=== PATIENT | female | born 1945 | race Caucasian/White ===

== ENCOUNTER 2016-09-26 17:02 | Observation (INO) | payer MEDICARE ==
--- NOTE | 2016-09-26 17:37 | ED.PDOC ---
History of Present Illness - General Source: patient, EMS notes reviewed Exam Limitations: no limitations - History of Present Illness Initial Comments: 71 YEAR OLD FEMALE PRESENTS TO THE ED AFTER A SYNCOPAL EPISODE WHILE IN [facility] JUST PRIOR TO ARRIVAL. PT REPORTS FEELING DIZZY INTERMITTENTLY THROUGHOUT THE DAY AND JUST PRIOR TO PASSING OUT. ACCORDING TO EMS, PT WAS INCONTINENT OF URINE. PT REPORTS KNOWING WHERE SHE WAS AND WHAT HAPPENED WHEN SHE REGAINED CONSCIOUSNESS. PT REPORTS OF GENERALIZED WEAKNESS NOW AND COCCYX PAIN. Timing/Prior Episodes: single episode today Precipitating Factors: lightheadedness - PT REPORTS NOT EATING ANYTHING TODAY AND ONLY DRANK A CUP OF COFFEE Context: standing Loss of Consciousness: brief (seconds) Current Symptoms: loss of bladder control, weakness <Caleb Maza - Last Filed: 09/26/16 17:41> <Rosemary Hook - Last Filed: 09/26/16 21:20> - General Chief Complaint: Syncope/Near Syncope Stated Complaint: DIZZINESS Time Seen by Provider: 09/26/16 17:28 - History of Present Illness Allergies/Adverse Reactions: Allergies IV contrast Allergy (Uncoded 09/26/16 17:15) Review of Systems - Review of Systems Constitutional: Denies: chills, fever EENTM: Denies: ear pain, throat pain Respiratory: Denies: cough, short of breath Cardiology: States: see HPI, syncope. Denies: chest pain, palpitations Gastrointestinal/Abdominal: Denies: abdominal pain, diarrhea, vomiting Genitourinary: Denies: dysuria, frequency Musculoskeletal: Denies: joint pain, joint swelling Skin: Denies: lesions, rash Neurological: States: no symptoms reported Endocrine: States: no symptoms reported Hematologic/Lymphatic: States: no symptoms reported <Caleb Maza - Last Filed: 09/26/16 17:41> Past Medical History (General) - Patient Medical History Hx Seizures: No Hx Stroke: No Hx Dementia: No Hx Asthma: No Hx of COPD: Yes Hx Cardiac Disorders: No Hx Congestive Heart Failure: No Hx Pacemaker: No Hx Hypertension: Yes Hx Diabetes: No Hx Gastroesophageal Reflux: No Hx Renal Disease: No Hx Cancer: No Hx of HIV: No Hx Hepatitis C: No Hx MRSA: No Hx Other - free text: 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, HIATAL HERNIA, CHRONIC BACK PAIN Surgical History: other - Vaccination History Hx Tetanus, Diphtheria Vaccination: Yes Hx Influenza Vaccination: Yes Hx Pneumococcal Vaccination: Yes Immunizations Up to Date: Yes - Social History Hx Tobacco Use: Yes Hx Chewing Tobacco Use: No Hx Alcohol Use: No Hx Substance Use: No Hx Substance Use Treatment: No Hx Depression: No Feels Threatened In Home Enviroment: No Feels Threatened In a Relationship: No Hx Physical Abuse: No Hx Emotional Abuse: No Hx Suspected Abuse: No - Female History Patient is a Female of Child Bearing Age (10 -59 yrs old): No Patient : No <Caleb Maza - Last Filed: 09/26/16 17:41> Physical Exam - Physical Exam General Appearance: Alert, Comfortable, No apparent distress Eyes, Ears, Nose, Throat Exam: normal ENT inspection Neck: non-tender, full range of motion Cardiovascular/Respiratory: regular rate, rhythm, no M/R/G, normal breath sounds , no respiratory distress Gastrointestinal/Abdominal: normal bowel sounds, non tender, soft Back Exam: normal inspection, no vertebral tenderness Extremity: normal range of motion, non-tender, normal inspection Mental Status: alert, 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: normal hearing, normal speech, PERRL Motor/Sensory: no motor deficit, no sensory deficit Skin Exam: normal color, warm/dry <Caleb Maza - Last Filed: 09/26/16 17:41> Progress - EKG/XRAY/CT EKG: Sinus - 80BPM, NL INTERVALS, NL AXIS, , no ST T wave changes - NO OLD EKG FOR COMPARISON <Caleb Maza - Last Filed: 09/26/16 17:41> - Results/Orders Results/Orders: 09/26/16 09/26/16 09/26/16 17:16 18:35 19:32 Temperature 96.9 F L Pulse Rate [ 79 77 72 Left Radial] Respiratory 18 18 16 Rate Blood Pressure 96/68 116/70 122/78 [Left Arm] O2 Sat by Pulse 92 L 93 L 98 Oximetry 09/26/16 17:30 EKG STAT 09/26/16 18:03 UA [URINALYSIS] Stat Laboratory Results WBC 15.7 K/mm3 (4.8-10.8) H 09/26/16 17:40 RBC 4.27 M/mm3 (4.20-5.40) 09/26/16 17:40 Hgb 13.0 gm/dL (12.0-16.0) 09/26/16 17:40 Hct 38.3 % (36.0-47.0) 09/26/16 17:40 MCV 89.9 fl (81.0-99.0) 09/26/16 17:40 MCH 30.4 pg (27.0-31.0) 09/26/16 17:40 MCHC 33.8 g/dL (33.0-37.0) 09/26/16 17:40 RDW 14.4 % (11.5-14.5) 09/26/16 17:40 Plt Count 253 K/mm3 (130-400) 09/26/16 17:40 MPV 7.8 fl (7.40-10.4) 09/26/16 17:40 Absolute Neuts (auto) 11.50 K/uL (1.8-6.8) H 09/26/16 17:40 Absolute Lymphs (auto) 2.90 K/uL (1.0-3.4) 09/26/16 17:40 Absolute Monos (auto) 1.10 K/uL (0.2-0.8) H 09/26/16 17:40 Absolute Eos (auto) 0.10 K/uL (0.0-0.4) 09/26/16 17:40 Absolute Basos (auto) 0.10 K/uL (0.0-0.1) 09/26/16 17:40 Neutrophils % 73.5 % (42.0-78.0) 09/26/16 17:40 Lymphocytes % 18.8 % (20.0-50.0) L 09/26/16 17:40 Monocytes % 6.8 % (2.0-9.0) 09/26/16 17:40 Eosinophils % 0.3 % (1.0-5.0) L 09/26/16 17:40 Basophils % 0.6 % (0.0-2.0) 09/26/16 17:40 PT 10.6 SECONDS (9.4-12.5) 09/26/16 17:40 INR 0.940 09/26/16 17:40 PTT (SP) 25.1 SECONDS (25.1-36.5) 09/26/16 17:40 Sodium 128 mmol/L (135-145) L 09/26/16 17:40 Potassium 3.8 mmol/L (3.6-5.0) 09/26/16 17:40 Chloride 94 mmol/L (101-111) L 09/26/16 17:40 Carbon Dioxide 25 mmol/L (21-31) 09/26/16 17:40 Anion Gap 12.8 (12-18) 09/26/16 17:40 BUN 14 mg/dL (7-18) 09/26/16 17:40 Creatinine 1.73 mg/dL (0.6-1.3) H 09/26/16 17:40 BUN/Creatinine Ratio 8.1 (10-20) L 09/26/16 17:40 Random Glucose 141 mg/dL (70-105) H 09/26/16 17:40 Serum Osmolality 259.9 mOsm/L (275-295) L 09/26/16 17:40 Calcium 10.1 mg/dL (8.4-10.2) 09/26/16 17:40 Magnesium 1.7 mg/dL (1.8-2.5) L 09/26/16 17:40 Creatine Kinase 33 IU/L (26-140) 09/26/16 17:40 CK-MB (CK-2) 1.7 ng/mL (0.0-4.4) 09/26/16 17:40 CK-MB (CK-2) % Not Reportable 09/26/16 17:40 Troponin I < 0.02 ng/mL (0.01-0.05) 09/26/16 17:40 L-spine x-ray: Spondylosis & scoliosis - EKG/XRAY/CT XRAY: chest Xray Comments: No acute process CT: Head, c-spine - no acute process CT Ordered: Yes CT Interpretation Call Back: No - Report sent - Additional EKG/XRAY/Consults XRAY #2: sacrum/coccyx Comments: No fractures XRAY #3: pelvis Comments: No acute fracture <Rosemary Hook - Last Filed: 09/26/16 21:20> Departure <Caleb Maza - Last Filed: 09/26/16 17:41> - Departure Time of Disposition: 21:00 <Rosemary Hook - Last Filed: 09/26/16 21:20> - Departure Clinical Impression: Syncopal seizure, Hyponatremia Syncope Qualifiers: Syncope type: unspecified Qualifier Code: (R55) Syncope and collapse Disposition: Admit Patient Condition: Good Decision To Admit - Decistion To Admit Decision to Admit Reason: Admit from ER Decision to Admit Date: 09/26/16 Decision to Admit Time: 08:55 <Rosemary Hook - Last Filed: 09/26/16 21:20>
[2016-09-26] MEDS ORDERED: SODIUM CHLORIDE 0.9% 1000ML 1,000 ML IVS ONE (18:38)
--- NOTE | 2016-09-26 19:00 | CT ---
PROCEDURE: Head HISTORY: syncope Indication: Same as above Comparison: None Technique: CT of the head was done without intravenous contrast was done in the orthogonal planes. FINDINGS: There is no intracranial hemorrhage, midline shift mass effect or acute focal infarct. If clinical concern exists regarding an acute ischemic/vascular pathology being responsible for patient's symptomatology, an MRI of the brain is more sensitive than the current study, in ruling out such a possibility. There is good crawford/white matter differentiation. The ventricular system is normal. The mastoid air cells are unremarkable . The paranasal sinuses show underlying changes of mild sphenoid and left maxillary chronic sinusitis . There is no visualization of acute fractures involving the calvarium or the skull base. IMPRESSION: There is no acute intracranial abnormality. Electronically signed by: Ivan Mcneill MD 09/26/2016 6:59 PM CAFETERIA FOOD SERVER
--- NOTE | 2016-09-26 19:07 | CT ---
PROCEDURE: Cervical Spine HISTORY: fall Indication: Same as above Comparison: None Technique: CT of the cervical spine was done without intravenous contrast, including axial, sagittal and coronal reconstructions. FINDINGS: There is no CT evidence of acute cervical spinal fractures or dislocations. The craniovertebral junction appears unremarkable. There is also evidence of moderate amount of degenerative change, including osteophyte formation, reduction in the intervertebral disc spaces, endplate degenerative changes and facet arthropathy seen at few levels. There is limited evaluation for acute or chronic intervertebral disc herniations or protrusions given the limitation of lack of intrathecal contrast. The prevertebral and the paravertebral soft tissues appear unremarkable. There is no gross evidence of epidural hematoma or paraspinal soft tissue fluid collections. The remainder of the visualized surrounding subcutaneous soft tissues and muscle structures are grossly unremarkable. The visualized airway appears unremarkable. The hyoid, cricoid and laryngeal cartilages are intact. The visualized segments of the bilateral parotid glands and the bilateral submandibular glands are unremarkable. There is no visualization of pathological lymphadenopathy in the region of the imaged neck. The bone mineralization is osteopenic. Vascular calcifications are seen in the bilateral carotid distribution, worse on the left side. The visualized lung apices show minimal infiltrate/atelectasis in the left upper lobe of the lung . The sagittal reconstructed images demonstrate normal alignment The coronal reconstructed images demonstrate normal alignment. IMPRESSION: Negative for acute cervical spine bony trauma. The visualized lung apices show minimal infiltrate/atelectasis in the left upper lobe of the lung . Electronically signed by: Ivan Mcneill MD 09/26/2016 7:06 PM CONTACT WORKER
--- NOTE | 2016-09-26 19:38 | RAD ---
EXAM DESCRIPTION: Pelvis,2 or More Views CLINICAL HISTORY: 71 years Female, fall COMPARISON: None. TECHNIQUE: AP pelvis and AP view of the pelvis with frog-leg lateral views of both hips FINDINGS: No fracture or bone lesion. SI joints unremarkable. No soft tissue abnormality observed. IMPRESSION: 1. Negative Electronically signed by: Shawn Baca MD 09/26/2016 7:37 PM FLOOR LAYER
--- NOTE | 2016-09-26 19:39 | RAD ---
EXAM DESCRIPTION: Sacrum Coccyx CLINICAL HISTORY: 71 years Female, TRAUMA COMPARISON: None. TECHNIQUE: Three views of the sacrum/coccyx FINDINGS: No fracture or bone lesion. SI joints unremarkable. IMPRESSION: Negative Electronically signed by: Shawn Baca MD 09/26/2016 7:39 PM CYBER SECURITY ENGINEER
--- NOTE | 2016-09-26 19:39 | RAD ---
EXAM DESCRIPTION: Chest,1 View CLINICAL HISTORY: 71 years Female, syncope COMPARISON: None. TECHNIQUE: AP portable chest. FINDINGS: The lungs are clear of infiltrate. There is no effusion or nodule. The lungs appear hyperinflated with flattening of the diaphragms. There is hyperlucency of the lungs as well. These findings are most consistent with chronic emphysema. Bilateral basilar linear scarring is present which appears minimal. Heart is normal size. IMPRESSION: 1. Chronic changes, no acute process Electronically signed by: Shawn Baca MD 09/26/2016 7:39 PM APPLICATIONS PROGRAMMER ANALYST
--- NOTE | 2016-09-26 19:40 | RAD ---
EXAM DESCRIPTION: Lumbar Spine 3 Views CLINICAL HISTORY: TRAUMA COMPARISON: None Available. TECHNIQUE: AP/lateral/coned-down lateral FINDINGS: Advanced multilevel lumbar spondylosis with collapse of the L2-3, L3-4, and L4-5 intervertebral discs. There is a broad levoscoliosis which is chronic. Facet arthropathy is present at L4-5 and L5-S1 particularly prominent at L5-S1 on the left. There is no fracture or bone lesion. IMPRESSION: 1. Advanced spondylosis and scoliosis Electronically signed by: Shawn Baca MD 09/26/2016 7:40 PM TAR MAN
--- NOTE | 2016-09-26 21:32 | HP ---
HISTORY OF PRESENT ILLNESS: This 71-year-old, white female is admitted to the hospital via the Emergency Room after being brought by [employer] by EMS because of the patient's complete loss of consciousness at the [employer] check-out. She just completed writing a check, she was somewhat dizzy, and proceeded to fall, landing on her sacrum as well as her head and had some observed short seizure activities for a few seconds. She was incontinent of urine. In the Emergency Room, she had a series of x-rays including a CT of the head, cervical spine, chest x-ray and pelvis with no acute findings noted. She is a retired nurse. She admits to not eating anything during the day and states she does not drink much fluids either. She states she is working with Dr. Jackson her primary care physician in [place] regarding chronic depression and will need to continue to work on this as well because of her symptoms. She is observed in the hospital overnight because of the loss of consciousness and the syncopal episode to rule out underlying cardiac events or arrhythmias. She also had an elevated white count of 15,700 and a low sodium of 128. PAST MEDICAL HISTORY: 1. Hypertension. 2. Arthritis. PAST SURGICAL HISTORY: 1. Lumbar spine surgery for disc removal. CURRENT MEDICATIONS: 1. Tylenol No. 3, which she takes twice daily because of the chronic pain and scoliosis of her spine, neck, and low back where she has had surgery in her lumbar area. ALLERGIES: IV CONTRAST. FAMILY HISTORY: Positive for cancer, heart attacks, strokes, but no diabetes. 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 She still smokes one pack of cigarettes a day. She apparently lives by herself. She is somewhat depressed because of a 14-year- old adopted son who is in a rehabilitation center for special needs. She also has three other adopted children in their 30s and 40s. REVIEW OF SYSTEMS: GENERAL: No significant weight change, fever or chills. HEENT: Hearing and vision appear to be fairly good. LUNGS: She has chronic cough from smoking. CARDIOVASCULAR: No significant palpitations or chest pains noted in the past. GASTROINTESTINAL: No nausea or vomiting. No blood in the stools. GENITOURINARY: No dysuria. EXTREMITIES: Pain in her sacral area where she fell when she blacked out tonight. NEUROLOGIC: Complete syncopal episode. She has had episodes of passing out or fainting in the past, usually when she is under stress and not eating and caring for herself. She has had these several times during the years. PHYSICAL EXAMINATION: VITAL SIGNS: Afebrile. Pulse 79. Blood pressure initially 96/68, up to 122/ 78. Pulse oximetry 92% room air. Weight 67 kg. GENERAL: The patient is awake, alert, oriented and communicative. She is a little wore at this time, but is fully awake and is thirsty and somewhat hungry. Food is provided to her. HEENT: Unremarkable. Ny nystagmus is evident on exam. Ears seem to be clean. NECK: Supple with no adenopathy or carotid bruits. LUNGS: Some diminished breath sounds and occasional rhonchi, otherwise clear. CARDIOVASCULAR: Heart tones are regular without any significant gallops. No significant chest wall tenderness on palpation. ABDOMEN: Soft with no organomegaly, masses or tenderness appreciated. EXTREMITIES: Well-formed with fairly good range of motion. No deformities otherwise noted. She does have a scoliosis of her spine, especially in the thoracic and lumbar regions. NEUROLOGIC: No focal neurological deficits are noted. The patient is awake, alert, oriented and communicative. LABORATORY: White count 15,700 with 73% neutrophils, hemoglobin 13. INR 0.94. Chemistries shows potassium 3.8, sodium low at 128, osmolality low at 260. Glucose 140, creatinine 1.73, BUN 14, troponin 0. Urine pending. X-rays of CT head, cervical spine CT, pelvic and chest x-rays as well as sacrum, coccyx and lumbar spine are reported as no acute fractures or injuries noted. ASSESSMENT: 1. Acute syncopal episode with complete loss of consciousness while standing in the upright position, falling and landing on her buttocks and her head. 2. History of similar syncopal episodes and faints in the past. 3. Leukocytosis. 4. Hyponatremia. 5. Renal insufficiency. 6. Mild hypomagnesemia. 7. Clinical depression, symptomatic. 8. Moderate dehydration. PLAN: Procure urinalysis to rule out urinary tract infection underlying. Check TSH. Repeat enzymes in the morning. Give a 300 mL slow bolus of hypertonic saline and give some normal saline with potassium for hydration overnight. Continue with telemetry and reevaluate in the morning. If stable, consider outpatient therapy with Dr. Jackson in [place]. Close followup necessary. [facility][id number] [facility]
[2016-09-26] MEDS ORDERED: ONDANSETRON INJ 4 MG/2 ML VIAL IV PRN (21:36)
[2016-09-26] MEDS ORDERED: LEVALBUTEROL NEBS 1.25 MG/3 ML VIAL INH PRN (21:36)
[2016-09-26] MEDS ORDERED: MAGNESIUM HYDROXIDE 30 ML UD PO PRN (21:36)
[2016-09-26] MEDS ORDERED: SOD CHL 3% *HYPERTONIC* 500ML 300 ML IVS ONE (21:44)
[2016-09-26] MEDS ORDERED: KCL 20 MEQ/NS 1,000 ML IVS PRN (21:45)
[2016-09-26] MEDS ORDERED: IPRATROPIUM/ALBUTEROL 3 ML VIAL INH SCH (22:00)
[2016-09-26] MEDS ORDERED: IV SET AND CAP CHANGE INJ INJ SCH (22:00)
[2016-09-26] MEDS: SODIUM CHLORIDE 0.9% (FLUSH) 10 ML SYG IV PRN (22:18)
[2016-09-26] MEDS: ACETAMINOPHEN W/COD #3 TAB 1 EA TAB PO SCH (22:18)
[2016-09-27] MEDS: SODIUM CHLORIDE 0.9% (FLUSH) 10 ML SYG IV PRN (03:20)
[2016-09-27] MEDS ORDERED: OMEPRAZOLE CAP 20 MG CAP PO SCH (06:30)
[2016-09-27] MEDS ORDERED: SODIUM CHLORIDE 0.9% 10 ML VIAL IV PRN (08:18)
[2016-09-27] MEDS: ACETAMINOPHEN W/COD #3 TAB 1 EA TAB PO SCH (09:04)
[2016-09-27 11:28] VITALS: BP 126/69; TEMP 97.8; O2SAT 93
--- NOTE | 2016-09-27 14:37 | DS ---
DISCHARGE DIAGNOSIS: 1. Acute syncopal episode with complete loss of consciousness while standing in the upright position, falling and landing on her buttocks and the posterior aspect of her head. 2. History of similar syncopal episodes or fainting episodes in the past. 3. Leukocytosis, improved. 4. Hyponatremia, improved with supplementation. 5. Chronic renal insufficiency. 6. Mild hypomagnesemia. 7. History of clinical depression, symptomatic. 8. Moderate dehydration. 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 when she got lightheaded and somewhat dizziness and proceeded to pass out with loss of consciousness, landing on the floor. She was taken to the Emergency Room after a few seconds of being unconscious. In the Emergency Room, she had a fairly complete radiographic survey and no acute bony injuries or head injuries were recorded. She was observed overnight because of the significance of the syncopal episode, especially checking on telemetry for any type of dysrhythmia contributing to the loss of consciousness. Her sodium was low and required some 3% saline and some normal saline fluid resuscitation. The patient admitted to not eating much during the day or drinking much during the day before her episode and will endeavor to be more faithful in having routine nutritional intake as well as adequate fluid intake to try to prevent this in the future. LABORATORY: White count 15,700 with 73% neutrophils, decreasing to 10,300. Hemoglobin dropped from 13 to 11.7 with hydration. INR 0.94. Sodium low at 128 , up to 133 with treatment. Potassium from 3.8 to 4.4. BUN 16, creatinine down to 1.53 at discharge. Glucose 95, calcium 9.5. Repeat troponin was 0. TSH normal at 0.52. Urinalysis clean. No cultures obtained. Multiple x-rays of CT head and cervical spine and plain films of chest, pelvis, sacrum, coccyx and lumbar spine failed to reveal any acute findings. HOSPITAL COURSE: The patient was sitting up, eating, ambulating, feeling much improved on the morning of discharge and was ready to have continued outpatient management. PLAN: Close followup suggested with Dr. Jackson in [place] within the next one to two weeks. Suggest repeat followup of her electrolytes close to that time. She is to stay active. She is to stop all smoking. Eat and drink a good balanced diet and return if not improving. #[id number] [facility]
[2016-09-27] MEDS ORDERED: FUROSEMIDE INJ 20 MG/2 ML VIAL IV ONE (22:00)
== END 2016-09-27 13:45 | disposition home or self-care (01) ==
LOC: ER 17:02 → MS 21:31
PROVIDERS: ADMIT Emergency Medicine; ATTEND Emergency Medicine
DX: R55 Syncope and collapse (principal); D72.829 Elevated white blood cell count, unspecified; E87.1 Hypo-osmolality and hyponatremia; I12.9 Hypertensive chronic kidney disease with stage 1 through stage 4 chronic kidney disease, or unspecified chronic kidney disease; N18.9 Chronic kidney disease, unspecified; E83.42 Hypomagnesemia; F32.9 Major depressive disorder, single episode, unspecified; E86.0 Dehydration; S39.92XA Unspecified injury of lower back, initial encounter; R32 Unspecified urinary incontinence; G89.29 Other chronic pain; M19.90 Unspecified osteoarthritis, unspecified site; F17.210 Nicotine dependence, cigarettes, uncomplicated; M47.817 Spondylosis without myelopathy or radiculopathy, lumbosacral region; M41.86 Other forms of scoliosis, lumbar region; W18.39XA Other fall on same level, initial encounter; Y93.89 Activity, other specified; Y92.512 Supermarket, store or market as the place of occurrence of the external cause; Z91.041 Radiographic dye allergy status; Z82.49 Family history of ischemic heart disease and other diseases of the circulatory system; Z82.3 Family history of stroke; Z80.9 Family history of malignant neoplasm, unspecified
CPT/HCPCS: 36415 ×3; 70450; 71010; 72100; 72125; 72190; 72220; 80048 ×2; 81001; 82550 ×2; 82553 ×2; 83880; 84443; 84484 ×2; 85025 ×2; 85610; 85730; 93005; 96360; 96361 ×2; 99284; G0378; J3480; J7030; J7799